=== PATIENT | female | born 1965 | race Native Hawaiian/Other Pacific Islander ===

== ENCOUNTER 2021-03-06 14:55 | Outpatient (CLI) | payer BC | END 2021-03-06 23:05 | disposition home or self-care (01) | LOC: RAD 14:55 | PROVIDERS: ATTEND Nurse Practitioner Family | DX: M06.4 Inflammatory polyarthropathy (principal); R70.0 Elevated erythrocyte sedimentation rate; D86.0 Sarcoidosis of lung; G47.39 Other sleep apnea ==